=== PATIENT | female | born 1990 | race Two or more races ===

== ENCOUNTER 2018-12-23 16:48 | Emergency (ER) | payer BC, OTHER ==
[~2018-12-23] VITALS: Ht 162.6 cm; Wt 90.3 kg
--- NOTE | 2018-12-23 17:02 | NUR ---
RUQ PAIN W/ N/V SINCE 1300, -DIARRHEA. STATES VOMIT X 1 TODAY. PT IS AOX4, AMB, VSS, RR EVEN AND UNLABORED. DENIES . DENIES SOB, DIZZINESS, WEAKNESS. NO ACUTE DISTRESS NOTED. FAMILY MEMBER AT BEDSIDE. READY FOR EVAL.
[2018-12-23] MEDS ORDERED: ONDANSETRON HCL/PF 4 MG/2 ML VIAL ONE (17:21)
[2018-12-23] MEDS ORDERED: ONDANSETRON HCL/PF 4 MG/2 ML VIAL IVP ONE (17:30)
--- NOTE | 2018-12-23 17:37 | NUR ---
TORCH OPERATOR AT BEDSIDE
[2018-12-23 17:46] LABS: BASOPHILS # (AUTO) 0.1 /CMM (0.0-0.2); BASOPHILS % (AUTO) 0.6 % (0.0-2.0); EOSINOPHILS % (AUTO) 0.5 % (0.0-6.0); HEMATOCRIT 40 % (33-45); HEMOGLOBIN 13.5 g/dL (11.5-14.8); LYMPHOCYTES # (AUTO) 1.8 /CMM (0.8-4.8); LYMPHOCYTES % (AUTO) 22.4 % (20.0-44.0); MEAN CORPUSCULAR HGB CONC 34 g/dl (31.0-36.0); MEAN CORPUSCULAR VOLUME 91 fL (82-100); MONOCYTES # (AUTO) 0.5 /CMM (0.1-1.30); MONOCYTES % (AUTO) 6.6 % (2.0-12.0); NEUTROPHILS # (AUTO) 5.7 /CMM (1.8-8.9); NEUTROPHILS % (AUTO) 69.9 % (43.0-81.0); PLATELET COUNT (AUTO) 319 /CMM (150-450); RED BLOOD CELL COUNT(AUTO) 4.33 MIL/uL (4.0-5.2); WHITE BLOOD COUNT (AUTO) 8.2 K/uL (4.3-11.0)
[2018-12-23 17:54] LABS: CALCIUM, SERUM 9.1 mg/dL (8.5-10.1); CREATININE 0.9 mg/dL (0.6-1.3); POTASSIUM 3.6 mmol/L (3.5-5.1)
[2018-12-23 18:00] LABS: ALBUMIN 4.3 g/dL (3.4-5.0); BILIRUBIN,DIRECT 0.2 mg/dL (0.0-0.2); BILIRUBIN,TOTAL 0.9 mg/dL (0.2-1.0); TOTAL PROTEIN, SERUM 8.7 g/dL (6.4-8.2)
--- NOTE | 2018-12-23 18:19 | NUR ---
Patient discharged to home in stable condition. Written and verbal after care instructions given. Patient verbalizes understanding of instruction.
[2018-12-23 18:21] VITALS: BP 116/74
== END 2018-12-23 18:15 | disposition home or self-care (01) ==
LOC: ER 16:50
DX: K80.20 Calculus of gallbladder without cholecystitis without obstruction (principal); Z98.890 Other specified postprocedural states
CPT/HCPCS: 36415; 76705-TC; 80048-TC; 80076-TC; 83690-TC; 84703-TC; 85025-TC; J2405